=== PATIENT | female | born 2000 | race Caucasian/White ===

== ENCOUNTER 2021-09-29 06:30 | Inpatient (IN) ==
[2021-09-29] MEDS ORDERED: D5 1/2 NS 1,000 ML 1,000 ML IV ONE (06:38)
[2021-09-29] MEDS ORDERED: PITOCIN ONE (06:38)
[2021-09-29] MEDS ORDERED: BETADINE SOLN ONE (06:39)
[2021-09-29] MEDS ORDERED: D5 1/2 NS 1,000 mL + PITOCIN 20 UNITS/L IV 20 UNITS/1,000 ML BAG IV ONE (06:39)
[2021-09-29] MEDS ORDERED: D5 LR + PITOCIN 10 UNITS/L 10 UNITS/1,000 ML BAG IV ONE ×2 (06:39→08:40)
[2021-09-29] MEDS: D5 1/2 NS 1,000 ML 1,000 ML IV SCH ×2 (06:50→20:21)
--- NOTE | 2021-09-29 07:12 | DR.OB ---
OB Quick Note - Assessment/Plan Assessment/Plan: L&D 09/29/21 at 7:05am S-No complaint. O-Afebrile,VSS RWE=441 with good LTV, +accel, no decel. CTX=mild, irregular CVX=3cm/50%/-1/VTX AROM with clear fluid. IUPC and FSE placed. A-IUP at 39 0/7 weeks for induction P-Begin pitocin induction Anticipate
[2021-09-29] MEDS ORDERED: REGLAN INJ 10 MG VIAL IVP PRN (07:31)
[2021-09-29] MEDS ORDERED: NUBAIN INJ 200 MG VIAL MULTIDOSE IVP PRN (07:31)
[2021-09-29] MEDS ORDERED: MORPHINE SULFATE INJ 2 MG INJ IVP PRN (07:31)
[2021-09-29] MEDS ORDERED: D5 LR + PITOCIN 10 UNITS/L 10 UNITS/1,000 ML BAG IV PRN (07:31)
[2021-09-29] MEDS ORDERED: PITOCIN IVP ONE (07:31)
[2021-09-29] MEDS ORDERED: PHENERGAN INJ 25 MG IM PRN ×2 (07:31→18:49)
[2021-09-29] MEDS ORDERED: STADOL INJ IVP PRN (07:32)
[2021-09-29] MEDS ORDERED: FENTANYL VIAL INJ 100 mcg ONE ×2 (08:49→08:50)
[2021-09-29] MEDS ORDERED: LR 1,000 ML IV 1,000 ML IV ONE (08:49)
[2021-09-29] MEDS ORDERED: STADOL INJ ONE (08:50)
[2021-09-29] MEDS ORDERED: NAROPIN EPIDURAL 0.2% 100 ML ONE (08:51)
[2021-09-29] MEDS ORDERED: EPHEDRINE SULFATE INJ ONE (08:56)
--- NOTE | 2021-09-29 12:25 | DR.OB ---
OB Quick Note - Assessment/Plan Assessment/Plan: L&D 09/29/21 at 12:20pm Pitocin=6mu/min. S-No complaint. s/p epidural. O-Afebrile,VSS TDQ=449 with good LTV, +accel., no decel. CTX=q 1 1/2 to 2 min., about 45-55mmHg CVX=6cm/90%/0 A-IUP at 39 0/7 weeks for induction P-Cont. pitocin induction Anticipate
[2021-09-29] MEDS ORDERED: REGLAN INJ 10 MG VIAL ONE (14:40)
--- NOTE | 2021-09-29 18:49 | DR.OB ---
OB Quick Note - Assessment/Plan Assessment/Plan: Delivery Note [employer] 09/29/21 at 6:33pm Patient complete and pushing. Head delivered over intact perineum. Nose and mouth bulb suctioned. No nuchal cord. Body delivered over intact perineum. Cord clamped x 2 and cut. Infant handed to attendant. Cord sent for gases. Placenta delivered spontaneously / intact / 3 vessel cord. No CVX / vaginal / perineal tears. Viable male infant, VTX/OA, wt=7'0" and 9/9, stable to NBN. Mother stable to RR. [id number].
[2021-09-29] MEDS: D5 1/2 NS 1,000 ML 1,000 ML with PITOCIN 20 UNITS IV SCH ×2 (19:30)
[2021-09-29] MEDS ORDERED: AMBIEN PO PRN (19:41)
[2021-09-29] MEDS ORDERED: DERMOPLAST PAIN RELIEF SPRAY TOP PRN (19:41)
[2021-09-29] MEDS ORDERED: ADACEL or BOOSTRIX TDaP VACCINE IM ONE (19:41)
[2021-09-29] MEDS ORDERED: MILK OF MAGNESIA PO PRN (19:41)
[2021-09-29] MEDS: MOTRIN TAB 800 MG PO PRN (20:21)
[2021-09-30] MEDS: D5 1/2 NS 1,000 ML 1,000 ML with PITOCIN 20 UNITS IV SCH ×4 (04:42→12:19)
[2021-09-30 05:14] LABS: HEMATOCRIT 26.7 % (36.0-47.0); HEMOGLOBIN 9.2 g/dL (12.0-16.0)
[2021-09-30] MEDS: MOTRIN TAB 800 MG PO PRN (06:00)
[2021-09-30] MEDS: PRENATAL PLUS PO SCH (08:13)
[2021-09-30] MEDS ORDERED: PREPARATION H OINT RECTAL PRN (12:21)
[2021-10-01 07:59] VITALS: BP 110/57
[2021-10-01] MEDS: PRENATAL PLUS PO SCH (08:59)
[2021-10-01] MEDS ORDERED: COLACE CAP 100 MG PO SCH (09:00)
== END 2021-10-01 11:10 | disposition home or self-care (01) | DRG 807 ==
LOC: LD 06:34 → MED/SURG 21:00
PROVIDERS: ADMIT Specialist; ATTEND Specialist
DX: O80 Encounter for full-term uncomplicated delivery; Z3A.39 39 weeks gestation of pregnancy; Z37.0 Single live birth

== ENCOUNTER 2025-04-07 06:22 | Inpatient (IN) ==
[2025-04-07] MEDS ORDERED: REGLAN INJ 10 MG VIAL IVP PRN (06:44)
[2025-04-07] MEDS: D5 1/2 NS 1,000 ML 1,000 ML IV SCH (06:50)
[2025-04-07] MEDS: OXYTOCIN 20 UNIT/1,000 ML-NS 20 UNIT/1,000 ML PLAST..BAG IV PRN (07:05)
--- NOTE | 2025-04-07 07:07 | DR.OB ---
OB QUICK NOTE Assessment/Plan (1) Elective induction of labor planned: Assessment/Plan: L&D 04/07/25 at 7:00am S-No complaint. O-Afebrile,VSS LDX=249 with good LTV, +accel, no decel. CTX=occasional, mild CVX=3-4cm/50%/-1/VTX AROM with clear fluid. IUPC and FSE placed. A-IUP at 39 2/7 weeks for induction P-Begin pitocin induction F/U labs Anticipate
[2025-04-07] MEDS: LR 1,000 ML IV 1,000 ML IV ONE (07:50)
[2025-04-07] MEDS: ZOFRAN INJ 4 MG VIAL IVP PRN (08:15)
[2025-04-07] MEDS: NUBAIN INJ 20 MG AMP IVP PRN (08:17)
[2025-04-07] MEDS: NUBAIN INJ 10 MG AMP ONE (08:23)
[2025-04-07] MEDS: NAROPIN EPIDURAL 0.2% 100 ML ONE (09:05)
[2025-04-07] MEDS: FENTANYL VIAL INJ 100 mcg ONE (09:05)
[2025-04-07] MEDS: ZOFRAN INJ 4 MG VIAL ONE (10:04)
[2025-04-07] MEDS: BETADINE SOLN ONE (10:25)
[2025-04-07] MEDS: PITOCIN IVP ONE (10:56)
--- NOTE | 2025-04-07 11:08 | DR.OB ---
OB QUICK NOTE Assessment/Plan (1) Elective induction of labor planned: Assessment/Plan: Delivery Note [employer] 04/07/25 at 10:52am Patient complete and pushing. Mother and stable. Head delivered over intact perineum. Nuchal cord x 1 reduced. Nose and mouth bulb suctioned. Body delivered over intact perineum. Cord clamped x 2 and cut. handed to attendant. Cord sent for gases. Placenta delivered spontaneously / intact / 3 vessel cord. No CVX / vaginal / perineal tears noted. Viable male delivered by , VTX/OA, wt=7'6" and 8/9, stable to NBN. Mother stable to RR. HFJ=[id number].
[2025-04-07] MEDS ORDERED: MOTRIN TAB 800 MG PO PRN (12:02)
[2025-04-07] MEDS ORDERED: MILK OF MAGNESIA PO PRN (12:02)
[2025-04-07] MEDS ORDERED: AMBIEN PO PRN (12:02)
[2025-04-07] MEDS ORDERED: DERMOPLAST PAIN RELIEF SPRAY TOP PRN (12:02)
[2025-04-07] MEDS: OXYTOCIN 20 UNIT/1,000 ML-NS 20 UNIT/1,000 ML PLAST..BAG IV SCH (13:37)
[2025-04-07] MEDS ORDERED: ADACEL or BOOSTRIX TDaP VACCINE IM ONE ×2 (14:20→14:29)
[2025-04-07] MEDS: ADACEL or BOOSTRIX TDaP VACCINE IM ONE (14:31)
[2025-04-07] MEDS: FERROUS GLUCONATE PO SCH (16:13)
[2025-04-07] MEDS: MOTRIN TAB 800 MG PO PRN (16:18)
[2025-04-07 17:33] VITALS: RESP 18
[2025-04-08 03:44] VITALS: O2SAT 97
[2025-04-08 07:53] VITALS: BP 113/76; PULSE 64; TEMP 98.2
[2025-04-08] MEDS: ZOLOFT PO SCH (08:32)
[2025-04-08] MEDS: PRENATAL PLUS PO SCH (08:32)
== END 2025-04-08 13:00 | disposition home or self-care (01) | DRG 807 ==
LOC: LD 06:22 → MED/SURG 12:32
PROVIDERS: ADMIT Specialist; ATTEND Specialist
DX: O99.013 Anemia complicating pregnancy, third trimester; F41.8 Other specified anxiety disorders; Z3A.39 39 weeks gestation of pregnancy; O99.343 Other mental disorders complicating pregnancy, third trimester; Z37.0 Single live birth; D50.8 Other iron deficiency anemias